=== PATIENT | male | born 1990 | race Caucasian/White ===

== ENCOUNTER 2016-06-18 21:26 | Emergency (ER) | payer MEDICAID ==
[2016-06-18 21:34] VITALS: BP 132/84; PULSE 82; TEMP 97.9; O2SAT 98
--- NOTE | 2016-06-18 21:45 | C.PDOC ---
History Of Present Illness 26 yo male come in for evaluation of Right upper gum pain, swelling and redness gradually developed since early today. Otherwise, pt denies fever, chills, headache, dizziness, facial swelling, drooling, trismus, recent dental work, dyspnea, cough, wheezing or any other active complaints. Ambulate to Ed for evaluation, not in any apparent distress. Time Seen by Provider: 06/18/16 21:36 Chief Complaint (Nursing): Dental Pain History Per: Patient Onset/Duration Of Symptoms: Gradual Current Symptoms Are (Timing): Still Present Past Medical History Reviewed: Historical Data, Nursing Documentation, Vital Signs Vital Signs: Last Vital Signs Temp 97.9 F 06/18/16 21:31 Pulse 82 06/18/16 21:31 Resp 18 06/18/16 21:31 BP 132/84 06/18/16 21:31 Pulse Ox 98 06/18/16 21:45 - Medical History PMH: No Chronic Diseases, GERD Surgical History: No Surg Hx - [facility] Procedures APPLICATION OF SPLINT (09/14/14) INJECT/INFUSE NEC (01/14/14) Family History: States: No Known Family Hx - Social History Hx Alcohol Use: Yes Hx Substance Use: No - Immunization History Hx Tetanus Toxoid Vaccination: Yes (2016) Hx Influenza Vaccination: Yes Hx Pneumococcal Vaccination: No Review Of Systems Except As Marked, All Systems Reviewed And Found Negative. Constitutional: Negative for: Fever, Chills Eyes: Negative for: Vision Change ENT: Positive for: Mouth Pain, Mouth Swelling. Negative for: Ear Discharge, Nose Discharge, Nose Congestion, Throat Pain, Throat Swelling Respiratory: Negative for: Cough, Shortness of Breath, Wheezing Gastrointestinal: Negative for: Nausea, Vomiting Skin: Negative for: Rash Neurological: Negative for: Weakness, Numbness, Altered Mental Status, Headache , Dizziness Physical Exam - Physical Exam Appears: Well, No Acute Distress Skin: Normal Color, Warm, Dry Eye(s): bilateral: Normal Inspection Nose: Normal, No Discharge Oral Mucosa: Moist, No Drooling, No Trismus Tongue: Normal Appearing Lips: Normal Appearing Teeth: Caries (roots Right upper 2nd premolar, 1-2 molars.) Gingiva: Erythema (Right upper), Swelling (Right upper), Abscess (early abscess Right upper along 2nd premolar, 1-2 molars) Throat: Normal, No Erythema, No Exudate, No Drooling Neck: Normal, Normal ROM, Supple Respiratory: Normal Breath Sounds, No Stridor, No Wheezing Extremity: Normal ROM Neurological/Psych: Oriented x3, Normal Speech ED Course And Treatment O2 Sat by Pulse Oximetry: 98 Pulse Ox Interpretation: Normal Progress Note: On re-evaluation, pt is afebrile, hemodynamicaly stable. Non- toxic. Tolerate po well in ED. PulseOx 98% RA. neck: (-) meningeal sign. ENT : exam c/w early Right upper tooth abscess, no flactulance, no facial edema or cellulitis, no drooling, no trismus. Uvula midline, no edema. Lungs: CTA B/L, BS equal B/L. Pt has clinical findings c/w early tooth abscess. Pt advised on course of ds. ref. to f/u with Dentist in 2-3 days for re-eval. returbn if any new changes. Disposition Counseled Patient/Family Regarding: Diagnosis, Need For Followup, Rx Given - Disposition Referrals: [facility] [Provider Group] [facility] [Provider Group] Disposition: HOME/ ROUTINE Disposition Time: 21:49 Condition: STABLE Additional Instructions: warm salty water tooth baths 2-3 times daily for 5 minutes take antibiotic as prescribed Follow up with Dentist in 2-3 days for re-evaluation and tooth extraction. return if any worsening or new changes. Prescriptions: Clindamycin [Cleocin] 300 mg PO Q6 #28 cap Ibuprofen [Motrin] 600 mg PO Q6 #14 tab Instructions: Dental Abscess (ED) - Clinical Impression Clinical Impression: Dental abscess
[2016-06-18 22:29] VITALS: RESP 20
== END 2016-06-18 22:28 | disposition home or self-care (01) ==
LOC: C.ER 21:26
DX: K04.7 Periapical abscess without sinus (principal)

== ENCOUNTER 2016-12-25 23:04 | Emergency (ER) | payer MEDICAID, OTHER ==
[2016-12-25 23:21] VITALS: BP 114/66; PULSE 76; RESP 20; TEMP 98.1; O2SAT 100
[2016-12-25] MEDS ORDERED: Tetracaine 0.5% Ophth (OR ONLY) ONE (23:41)
[2016-12-25] MEDS ORDERED: Fluorescein 1 mg Ophthalmic Strip ONE (23:41)
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
== END 2016-12-26 00:19 | disposition home or self-care (01) ==
LOC: C.ER 23:04
DX: S05.02XA Injury of conjunctiva and corneal abrasion without foreign body, left eye, initial encounter (principal); Y04.0XXA Assault by unarmed brawl or fight, initial encounter